=== PATIENT | female | born 1940 ===

== ENCOUNTER 2016-10-20 15:17 | Emergency (ER) | payer MEDICARE ==
[2016-10-20 15:36] VITALS: BP 138/89; PULSE 89; RESP 16; TEMP 97.8; O2SAT 99
--- NOTE | 2016-10-20 16:36 | ED PDOC ---
HPI: Female Pain Time Seen by Provider: 10/20/16 15:44 Chief Complaint (Nursing): Female Genitourinary Chief Complaint (Provider): Dysuria, suprapubic pain History Per: Patient History/Exam Limitations: no limitations Onset/Duration Of Symptoms: Days Current Symptoms Are (Timing): Still Present Quality Of Discomfort: "Pain" Associated Symptoms: Urinary Symptoms. denies: Fever, Chills, Back Pain Additional History Per: Patient Additional Complaint(s): The patient is a 76yo female, pmhx of DM, presents to the ED for evaluation of dysuria and suprapubic pain for the past two days. Pt reports her pain is worse with urination and describes it as a burning sensation; she additionally states she has cloudy urine. Pt reports some episodes of diarrhea couple days before her urinary symptoms. She denies any associated fever, chills, nausea, vomiting or back pain. Pt offers no additional medical complaints. PCP: [facility] Abnormal Vaginal Bleeding: No Past Medical History Reviewed: Historical Data, Nursing Documentation, Vital Signs Vital Signs: Last Vital Signs Temp 97.8 F 10/20/16 15:33 Pulse 89 10/20/16 15:33 Resp 16 10/20/16 15:33 BP 138/89 10/20/16 15:33 Pulse Ox 99 10/20/16 15:33 - Medical History PMH: Diabetes, HTN, Hypercholesterolemia Denies: HIV - Surgical History Surgical History: Cholecystectomy - Family History Family History: States: Unknown Family Hx - Social History Current smoker - smoking cessation education provided: No Alcohol: None Drugs: Denies - Home Medications Home Medications: Ambulatory Orders Medication Instructions Recorded Ciprofloxacin HCl [Cipro] 500 mg PO BID #0 tab 11/20/14 Docusate [Colace] 100 mg PO BID #0 cap 11/20/14 Ergocalciferol [Vitamin D] 50,000 iu PO QWK #0 sgl 11/20/14 Glimepiride 4 mg PO DAILY #0 tab 11/20/14 Linagliptin [Tradjenta] 5 mg PO DAILY #0 tab 11/20/14 Metronidazole [Flagyl] 500 mg PO Q8 #21 tab 11/20/14 Olmesartan/Hydrochlorothiazide 1 tab PO DAILY #0 tab 11/20/14 [Benicar Hct 12.5 mg-40 mg] Oxycodone HCl/Acetaminophen 1 tab PO Q6 #20 tab 11/20/14 [Percocet 325 mg-5 mg] Pioglitazone [Actos] 45 mg PO DAILY #0 tab 11/20/14 Ramipril 10 mg PO DAILY #0 cap 11/20/14 Simvastatin 40 mg PO DAILY #0 tab 11/20/14 Nitrofurantoin Macrocrystals 100 mg PO BID #14 cap 10/20/16 [Macrobid] - Allergies Allergies/Adverse Reactions: Allergies Allergy/AdvReac Type Severity Reaction Status Date / Time No Known Allergies Allergy Verified 11/17/14 12:03 Review of Systems ROS Statement: Except As Marked, All Systems Reviewed And Found Negative Constitutional: Negative for: Fever, Chills Gastrointestinal: Positive for: Abdominal Pain. Negative for: Nausea, Vomiting Genitourinary Female: Positive for: Dysuria. Negative for: Frequency, Hematuria Musculoskeletal: Negative for: Back Pain Physical Exam - Reviewed Nursing Documentation Reviewed: Yes Vital Signs Reviewed: Yes - Physical Exam Appears: Positive for: Non-toxic, No Acute Distress Head Exam: Positive for: ATRAUMATIC, NORMAL INSPECTION, NORMOCEPHALIC Skin: Positive for: Normal Color Eye Exam: Positive for: Normal appearance Neck: Positive for: Normal, Supple Cardiovascular/Chest: Positive for: Regular Rate, Rhythm Respiratory: Positive for: Normal Breath Sounds. Negative for: Respiratory Distress Gastrointestinal/Abdominal: Positive for: Soft, Tenderness (mild suprapubic tenderness) Back: Positive for: Normal Inspection. Negative for: L CVA Tenderness, R CVA Tenderness Extremity: Positive for: Normal ROM. Negative for: Deformity, Swelling Neurologic/Psych: Positive for: Alert, Oriented. Negative for: Motor/Sensory Deficits - ECG O2 Sat by Pulse Oximetry: 99 (RA) Pulse Ox Interpretation: Normal Medical Decision Making Medical Decision Making: Time: 1550 Impression: UTI, cystitis Plan: -- UDip -- Urine culture --Reassess Time: 1630 UDip is positive for leuks and blood, findings consistent with UTI. Pt to be discharged home with prescriptions to treat her UTI. Scribe Attestation: Documented by Marie Kwok acting as a scribe for Trever Campos MD Provider Scribe Attestation: All medical record entries made by the Scribe were at my direction and personally dictated by me. I have reviewed the chart and agree that the record accurately reflects my personal performance of the history, physical exam, medical decision making, and the department course for this patient. I have also personally directed, reviewed, and agree with the discharge instructions and disposition. Disposition - Clinical Impression Clinical Impression: Urinary tract infection - Patient ED Disposition Is Patient to be Admitted: No Doctor Will See Patient In The: Office Counseled Patient/Family Regarding: Studies Performed, Diagnosis, Need For Followup, Rx Given - Disposition Referrals: [facility] [Outside] Disposition: Routine/Home Disposition Time: 16:30 Condition: STABLE Additional Instructions: Take your medications as instructed. Take tylenol for pain. Follow up with your PCP in 2-3 days. Prescriptions: Nitrofurantoin Macrocrystals [Macrobid] 100 mg PO BID #14 cap Instructions: Urinary Tract Infection in Women (DC) Forms: [facility] (Czech) Print Language: TURKISH
[2016-10-20] MEDS ORDERED: Piperacillin/Tazobact 3.375 gm Inj IVPB ONE (17:50)
== END 2016-10-20 17:16 | disposition home or self-care (01) ==
LOC: H.ER 15:17
DX: N30.90 Cystitis, unspecified without hematuria (principal); E11.9 Type 2 diabetes mellitus without complications; I10 Essential (primary) hypertension